=== PATIENT | male | born 1970 | race Caucasian/White ===

== ENCOUNTER 2017-04-17 21:35 | Emergency (ER) | payer OTHER ==
[~2017-04-17] VITALS: Ht 187.9 cm; Wt 124.7 kg
[~2017-04-17 21:35] MED LIST: ALBUTEROL0.09 MG/A2 INH; ANTIVERT25 MG PO; ATIVAN2 MG PO; BUSPAR10 MG PO; CARAFATE1 G1 PO; CILOXAN 5 ML5 M1 OT; CIPROFLOXACIN500 MG PO; COGENTIN0.5 MG PO; COZAAR50 MG; CYCLOBENZAPRINE10 MG PO; DAYPRO600 M1 PO; EC NAPROSYN500 MG PO; FLAGYL500 MG PO; FLOVENT DI100 MCG/Ac PO; GEODON40 MG PO; HALDOL5 MG PO; HYDROCODONE BIT1 T11 PO; HYDROCODONE BIT1 T52 JT; LAMICTAL150 MG PO; LEVOFLOXACIN500 MG PO; LISINOPRIL5 MG PO; LOSARTAN POTASS50 M1 PO; NAPROSYN500 MG PO; PREDNICOT10 MG PO; PROVENTIL0.09 MG/A1 INH; ROBAXIN750 MG PO; SPIRIVA18 MCG PO; TESSALON PERLE100 M1 PO; VICODIN 500 MG-1 TAB PO; ZANTAC 150150 MG PO; ZITHROMAX Z PA250 MG PO; ZOCOR40 MG PO; ZOFRAN4 MG PO; Zofran4 MG PO; [UNRECOGNIZED DRUG - CODE] PO
[2017-04-17] MEDS ORDERED: NAPROSYN500 MG PO (23:13)
[2017-04-17] MEDS ORDERED: CYCLOBENZAPRINE10 MG PO (23:13)
== END 2017-04-17 23:34 | disposition home or self-care (01) ==
LOC: ED 21:35
DX: M54.40 Lumbago with sciatica, unspecified side (principal); F17.200 Nicotine dependence, unspecified, uncomplicated; Z88.1 Allergy status to other antibiotic agents; Z79.899 Other long term (current) drug therapy

== ENCOUNTER 2017-07-03 19:37 | Emergency (ER) | payer OTHER ==
[~2017-07-03] VITALS: Ht 185.4 cm; Wt 99.8 kg
[2017-07-03] MEDS ORDERED: LEVETIRACETAM500 MG PO (19:45)
[2017-07-03] MEDS ORDERED: AMLODIPINE BESYL5 MG PO (19:46)
[2017-07-03 20:35] LABS: ALBUMIN 3.5 gm/dl (3.1-4.5); ALKALINE PHOSPHATASE 97 U/L (45-117); BILIRUBIN, TOTAL 0.4 mg/dl (0.2-1.0); BUN 32 mg/dl (7-24); CARBON DIOXIDE 18 mmol/L (21-32); CHLORIDE 104 mmol/L (98-107); EST GLOM FILT AFRICAN AMERICAN 51 ml/min; GLUCOSE 92 mg/dL (65-99); POTASSIUM 4.3 mmol/L (3.5-5.1); SGOT/AST 53 IU/L (3-35); SGPT/ALT 34 U/L (12-78); SODIUM 139 mmol/L (136-145); TOTAL PROTEIN 8.2 gm/dL (6.4-8.2)
[2017-07-03 20:37] LABS: TROPONIN I < 0.015 ng/ml (<0.045)
[2017-07-03 21:10] LABS: ABG CO2 CONTENT 18.4 mmol/L (23-27); ABG HCO3 17.4 mmol/l (22-26); ARTERIAL BLOOD GAS PH 7.33 (7.35-7.45); ARTERIAL BLOOD GAS PO2 70.4 mmHg (80-90)
[2017-07-03 21:12] LABS: ABG BASE EXCESS -7.2 mmol/L (-2.0-2.0)
[2017-07-03 21:16] LABS: HEMATOCRIT 38.9 % (42.0-52.0); HEMOGLOBIN 13.2 g/dl (14.0-18.0); MEAN CELL VOLUME 92.4 fl (80.0-94.0); MEAN CORPUSCULAR HGB 31.4 pg (27.0-31.0); MEAN CORPUSCULAR HGB CONC 33.9 g/dl (33.0-37.0); MEAN PLATELET VOLUME 10.3 fl (9.6-12.3); PLATELET COUNT AUTOMATED 665 10*3/uL (130-400); RED BLOOD COUNT 4.21 10*6/uL (4.50-5.90); RED CELL DISTRI WIDTH 12.4 % (0-14.5); WHITE BLOOD COUNT 24.4 10*3/uL (4.8-10.8)
[2017-07-03 21:19] LABS: LYMPHOCYTE # 3.4 10*3/uL (1.3-4.4); MONOCYTE # 1.2 10*3/uL (0.1-1.0); NEUTROPHIL # 19.8 10*3/uL (2.3-7.9); NEUTROPHILS 81 % (47-73); PLATELET SUFFICIENCY HIGH (NORMAL); TOTAL CELLS COUNTED 100 #CELLS
[2017-07-03 21:20] LABS: POLYCHROMASIA SLIGHT
[2017-07-03 21:54] LABS: BILIRUBIN 1+ (NEGATIVE); BLOOD 2+ (NEGATIVE); CLARITY CLEAR (CLEAR); COLOR YELLOW (YELLOW); GLUCOSE NEGATIVE (NEGATIVE); KETONE 3+ (NEGATIVE); LEUKO ESTERASE NEGATIVE (NEGATIVE); NITRITE NEGATIVE (NEGATIVE); PH 5.5 (5.0-9.0); PROTEIN 1+ (NEGATIVE); SPECIFIC GRAVITY 1.025 (1.005-1.030); UROBILINOGEN 0.2 E.U./dl (0.2-1.0)
[2017-07-03 22:00] LABS: HYALINE CAST 16-20; URINE REFLEX COMMENT YES (NO)
[2017-07-03 22:01] LABS: BACTERIA TRACE; EPITHELIAL CELLS 0-2; WBC 0-2 wbc/hpf (0-5)
[2017-07-03 22:15] LABS: LA>2 REFLEX 2 HR DRAW NOW
[2017-07-03 22:16] LABS: URINE AMPHETAMINES < 1000 (1000ng/ml); URINE BARBITURATES < 200 (200ng/ml); URINE COCAINE < 300 (300ng/ml)
== END 2017-07-04 00:20 | disposition short-term general hospital (02) ==
LOC: ED 19:37
PROVIDERS: Emergency Medicine Emergency Medical Services
DX: J18.9 Pneumonia, unspecified organism (principal); R41.82 Altered mental status, unspecified; F41.9 Anxiety disorder, unspecified; J44.9 Chronic obstructive pulmonary disease, unspecified; F17.200 Nicotine dependence, unspecified, uncomplicated; Z88.1 Allergy status to other antibiotic agents; Z79.899 Other long term (current) drug therapy

== ENCOUNTER 2017-09-18 13:06 | Emergency (ER) | payer OTHER ==
[~2017-09-18] VITALS: Wt 104.3 kg
[~2017-09-18 13:06] MED LIST changes: +AMLODIPINE BESYL5 MG PO; +LEVETIRACETAM500 MG PO
[2017-09-18] MEDS ORDERED: CYCLOBENZAPRINE10 MG PO (15:10)
[2017-09-18] MEDS ORDERED: NAPROSYN500 MG PO (15:10)
[2017-09-18] MEDS ORDERED: MEDROL DOSEPAK4 MG PO (15:10)
== END 2017-09-18 15:13 | disposition home or self-care (01) ==
LOC: ED 13:06
DX: G89.29 Other chronic pain (principal); M54.41 Lumbago with sciatica, right side; F17.200 Nicotine dependence, unspecified, uncomplicated; Z79.899 Other long term (current) drug therapy; Z98.890 Other specified postprocedural states

== ENCOUNTER 2017-11-08 03:46 | Emergency (ER) | payer OTHER ==
[~2017-11-08] VITALS: Ht 187.9 cm; Wt 113.4 kg
[~2017-11-08 03:46] MED LIST changes: +MEDROL DOSEPAK4 MG PO
[2017-11-08] MEDS ORDERED: PREDNISONE10 M1 PO (05:02)
[2017-11-08] MEDS ORDERED: PROVENT1 EACH INH (05:02)
[2017-11-08] MEDS ORDERED: GUAIFENESIN600 MG PO (05:02)
[2017-11-08] MEDS ORDERED: CYCLOBENZAPRINE10 MG PO (05:08)
== END 2017-11-08 05:26 | disposition home or self-care (01) ==
LOC: ED 03:46
DX: M54.41 Lumbago with sciatica, right side (principal); J20.9 Acute bronchitis, unspecified; J06.9 Acute upper respiratory infection, unspecified; J44.9 Chronic obstructive pulmonary disease, unspecified; F41.9 Anxiety disorder, unspecified; J44.1 Chronic obstructive pulmonary disease with (acute) exacerbation; Z79.899 Other long term (current) drug therapy

== ENCOUNTER 2019-01-13 12:29 | Emergency (ER) | payer OTHER ==
[~2019-01-13] VITALS: Ht 187.9 cm; Wt 125.6 kg
[~2019-01-13 12:29] MED LIST changes: +GUAIFENESIN600 MG PO; +PREDNISONE10 M1 PO; +PROVENT1 EACH INH
[2019-01-13] MEDS ORDERED: ZITHROMAX250 MG PO (14:22)
[2019-01-13] MEDS ORDERED: CYCLOBENZAPRINE10 MG PO (14:22)
[2019-03-30] MEDS ORDERED: PREDNISONE20 M1 PO (13:33)
[2019-03-30] MEDS ORDERED: ROBAXIN500 M1 PO (13:33)
== END 2019-01-13 14:32 | disposition home or self-care (01) ==
LOC: ED 12:29
DX: S30.0XXA Contusion of lower back and pelvis, initial encounter (principal); J40 Bronchitis, not specified as acute or chronic; J44.9 Chronic obstructive pulmonary disease, unspecified; Z79.899 Other long term (current) drug therapy; W19.XXXA Unspecified fall, initial encounter; Y93.89 Activity, other specified; Y92.098 Other place in other non-institutional residence as the place of occurrence of the external cause; Y99.8 Other external cause status

== ENCOUNTER 2020-04-12 16:09 | Inpatient (IN) | payer OTHER ==
[~2020-04-12] VITALS: Ht 187.9 cm; Wt 148.9 kg
[2020-04-12] VITALS (7 sets, daily range): BP systolic 142–179; BP diastolic 94–109
[~2020-04-12 16:09] MED LIST changes: +PREDNISONE20 M1 PO; +ROBAXIN500 M1 PO; +ZITHROMAX250 MG PO
--- NOTE | 2020-04-12 17:25 | NUR ---
in to see pt.
--- NOTE | 2020-04-12 17:35 | NUR ---
aware of pt taking asprin and recenty hurting leg.Orders for cta at this time.Dorsal pedal pulse good on right leg and pt able to move it.
[2020-04-12 17:41] LABS: BASO # 0.1 10*3/uL (0.0-0.1); BASO % 0.6 % (0.0-1.0); EOS # 0.5 10*3/uL (0.0-0.4); EOS % 6.3 % (1.0-4.0); HEMATOCRIT 39.8 % (42.0-52.0); LYMPH # 1.7 10*3/uL (1.3-4.4); LYMPH % 20.2 % (27.0-41.0); MEAN CELL VOLUME 92.8 fl (80.0-94.0); MEAN CORPUSCULAR HGB 31.7 pg (27.0-31.0); MEAN CORPUSCULAR HGB CONC 34.2 g/dl (33.0-37.0); MEAN PLATELET VOLUME 9.7 fl (9.6-12.3); MONO # 0.8 10*3/uL (0.1-1.0); NEUT # 5.3 10*3/uL (2.3-7.9); NEUT % 62.6 % (47.0-73.0); PLATELET COUNT AUTOMATED 285 10*3/uL (130-400); RED BLOOD COUNT 4.29 10*6/uL (4.50-5.90); RED CELL DISTRI WIDTH 13.1 % (0-14.5); WHITE BLOOD COUNT 8.4 10*3/uL (4.8-10.8)
[2020-04-12 17:54] LABS: ACT PARTIAL THROMBO TIME 23.1 SECONDS (20.0-32.1); INTERNATIONAL NORM RATIO 0.9 (2.0-3.5)
--- NOTE | 2020-04-12 17:55 | NUR ---
Pt states pain is much better after morphine.
[2020-04-12 17:58] LABS: ALBUMIN 3.3 gm/dl (3.1-4.5); ALKALINE PHOSPHATASE 133 U/L (45-117); BUN 11 mg/dl (7-24); CHLORIDE 105 mmol/L (98-107); CREATININE 1.02 mg/dL (0.70-1.30); LIPASE 143 U/L (73-393); POTASSIUM 3.9 mmol/L (3.5-5.1); SGOT/AST 72 IU/L (3-35); SGPT/ALT 98 U/L (12-78); SODIUM 136 mmol/L (136-145); TOTAL PROTEIN 7.8 gm/dL (6.4-8.2)
[2020-04-12 18:00] LABS: TROPONIN I < 0.015 ng/ml (<0.045)
[2020-04-12 18:27] LABS: CLARITY SL CLOUDY (CLEAR); COLOR YELLOW (YELLOW)
[2020-04-12 18:28] LABS: BILIRUBIN NEGATIVE (NEGATIVE); BLOOD TRACE-INTACT (NEGATIVE); GLUCOSE 1+ (NEGATIVE); KETONE NEGATIVE (NEGATIVE); LEUKO ESTERASE NEGATIVE (NEGATIVE); NITRITE NEGATIVE (NEGATIVE); SPECIFIC GRAVITY 1.025 (1.005-1.030); UROBILINOGEN 0.2 E.U./dl (0.2-1.0)
--- NOTE | 2020-04-12 19:10 | NUR ---
Pt to ct scan
--- NOTE | 2020-04-12 19:11 | NUR ---
Transfer of care to Fatemeh nieves
--- NOTE | 2020-04-12 20:30 | NUR ---
PATIENT AT DESK AT THIS TIME ASKING TO SIGN OUT AMA, STATES HE DOESNT WANT TO WAIT ON CT SCAN RESULTS AT THIS TIME. PATIENT ALREADY PULLED OUT IV AND TOOK OFF HEART MONITOR AT THIS TIME AND IS DRESSED. DR PARRY AT BEDSIDE SPEAKING WITH HIM AT THIS TIME.
--- NOTE | 2020-04-12 20:45 | NUR ---
I WAS HAVING PATIENT SIGN AMA PAPERS AND DR PARRY GOT A CALL FROM OPPRTUNITY FOR CT SCAN RESULTS. PATIENT STATES HE WILL WAIT ON DOC TO COME BACK WITH RESULTS.
--- NOTE | 2020-04-12 21:10 | NUR ---
PATIENT HAS AGREED TO STAY HERE AT THE HOSPITAL AFTER GETTING CT SCAN RESULTS. PATIENT IN NO ACUTE DISTRESS AT THIS TIME. AOX3. RN WILL CONT TO MONITOR.
--- NOTE | 2020-04-12 21:48 | NUR ---
PATIENT PLACED ON 2LITERS NC AT THIS TIME FOR COMFORT. PATIENT PLACED ON MONITOR AT THIS TIME NSR IN THE 90'S. AOX3. RESP LABORED AND INCREASED AT THIS 28 BREATHS PER MINUTE.
--- NOTE | 2020-04-12 22:35 | NUR ---
WHILE GOING THROUGH PATIENT'S CHART, RN NOTICED MULTIPLE S/S CONSISTENT WITH COVID 19. RN HAS NOT RECEIVED NURSE TO NURSE REPORT YET, BUT CALLED TO QUESTION WHETHER PT SHOULD BE TESTED PRIOR TO COMING TO FLOOR. NOT NECESSARY PER . STATES PT HAD RECENT PROCEDURE AND RESPIRATORY STATUS RELATED TO PAIN ASSOCIATED WITH HEMATOMA/PE.
--- NOTE | 2020-04-12 23:28 | NUR ---
A 49, admitted to , under the services of GE Casas DO with a diagnosis of PULMONARY EMBOLISM. Chief complaint is ABDOMINAL (RUQ) PAIN, SOB. Patient arrived via wheel chair from ER. Monitor applied. Initial assessment completed. Vital signs taken and recorded. GE CASAS DO notified of admission to the unit. Orders received. See assessment for past medical history, medications and allergies. Patient and/or family oriented to unit. [facility] visitation policy reviewed. Clothing/patient valuable form completed. PAULINO CATHERINE
--- NOTE | 2020-04-12 23:48 | NUR ---
PT MEDICATED WITH PO NORCO PER PRN ORDER FOR C/O R SIDE PAIN RATED 9/10. STATES EARLIER MORPHINE WEARING OFF. WILL MONITOR EFFECTIVENESS. PT INSISTING ON GETTING UP TO USE RESTROOM. RN OFFERED URINAL AT BEDSIDE, BUT PT STATES HE WANTS TO GET UP TO USE BATHROOM IN BATHROOM. RN ASSISTED PT TO BATHROOM. URINAL USED TO URINATE. DARK ALONDRA/TEA COLORED URINE NOTED. PT VERY SOB. RN ENCOURAGED PT TO RETURN TO BED AND FOCUS ON BREATHING. WILL MONITOR.
[2020-04-12] MEDS ORDERED: ATORVASTATIN CA10 M1 PO (23:58)
[2020-04-12] MEDS ORDERED: IBU800 M1 PO (23:59)
[2020-04-12] MEDS ORDERED: GABAPENTIN600 MG PO (23:59)
[2020-04-13] MEDS ORDERED: 'XANAX1 MG PO
[2020-04-13] MEDS ORDERED: PROAIR HFA8.5 GM INH (00:01)
[2020-04-13] MEDS ORDERED: QUETIAPINE FUM300 M1 PO (00:01)
[2020-04-13] MEDS ORDERED: CYCLOBENZAPRINE10 MG PO (00:02)
[2020-04-13] MEDS ORDERED: FUROSEMIDE20 M1 PO (00:03)
[2020-04-13] MEDS ORDERED: SERTRALINE HYD100 MG PO (00:04)
[2020-04-13] MEDS ORDERED: ATENOLOL25 MG PO (00:05)
[2020-04-13] MEDS ORDERED: LISINOPRIL20 MG PO (00:05)
[2020-04-13 00:20] VITALS: BP 168/74
--- NOTE | 2020-04-13 00:22 | NUR ---
NOTIFIED OF PATIENT'S BP 168/74 MANUALLY. DISCUSSED PATIENT'S C/O PAIN IN R SIDE RATED 9/10 DESPITE MORPHINE GIVEN AT 2244 IN ER AND PO NORCO GIVEN AT 2348 ONCE ON FLOOR. ALSO MADE AWARE MED REC UP TO DATE PER PT RECALL. PT REQUESTING HOME SEROQUEL. NEW ORDERS TO FOLLOW.
--- NOTE | 2020-04-13 00:52 | NUR ---
IV DILAUDID ADMINISTERED PER ONE TIME ORDER FOR C/O PAIN IN CHEST/R SIDE RATED 8/10. WILL MONITOR EFFECTIVENESS. CALL LIGHT IN REACH.
--- NOTE | 2020-04-13 01:40 | NUR ---
EARLIER DILAUDID EFFECTIVE. NOW RATING PAIN 5/10. WILL MONITOR. CALL LIGHT IN REACH. AWARE SHIFT DIRECTOR ATTEMPTING TO LOCATE SEROQUEL IT IS NOT IN 4E PYXIS. VERBALIZES UNDERSTANDING. NO OTHER NEEDS VOICED AT THIS TIME.
--- NOTE | 2020-04-13 02:23 | NUR ---
PO SEROQUEL GIVEN PER ORDER. WILL MONITOR.
--- NOTE | 2020-04-13 02:24 | NUR ---
NIKA VAZQUEZ [id number] Please refer to the physician's history and physical for past medical history, comorbid conditions, and allergies. Diagnosis: PULMONARY EMBOLI Amrit Score: 18,AT RISK WOUND DESCRIPTIONS: Patient states the ecchymotic area just appeared this morning. It is dark red and purple in color and is located on the right side. It measures 28cm x 46cm x <0.1cm. Patient is having discomfort at time of assessment. Patient nurse Deborah states she will medicate when able to. Surface the patient is resting on: [employer] SKIN PREVENTION RECOMMENDATION: 1. Pressure redistribution support surface as appropriate 2. Elevate heels 3. Remove boots/TEDS every shift and reapply 4. Head of bed 30 degrees as tolerated 5. Assess nutrition and hydration 6. Manage moisture 7. Avoid the use of containment devices while in bed 8. Use absorptive products on surfaces limit layers of linens on bed 9. Turn and reposition every 1-2 hours in bed and every 1 hour in chair as tolerated 10. Weight shifts every 15 minutes while up in chair 11. Offloading with pillows or device to keep heels elevated off bed 12. Monitor skin at least every shift 13. Inspect under medical devices twice a day
--- NOTE | 2020-04-13 02:46 | NUR ---
PT MEDICATED WITH IV MORPHINE PER PRN ORDER FOR C/O R SIDE/CHEST PAIN RATED 8/10. WILL MONITOR EFFECTIVENESS. CALL LIGHT IN REACH. BED ALARM INTACT.
--- NOTE | 2020-04-13 03:13 | NUR ---
PO XANAX ADMINISTERED PER PRN ORDER FOR INCREASED ANXIETY/AGITATION. PATIENT HAD COUGHING SPELL. PT C/O PAIN IN R SIDE WITH COUGHING. PT RATING PAIN 8/10. STATES MORPHINE HELPED SOME, BUT IS STILL IN PAIN WHEN COUGHING. WILL ADMINISTER NORCO WHEN DUE. WILL MONITOR EFFECTIVENESS OF XANAX. CALL LIGHT IN REACH.
[2020-04-13 03:15] VITALS: BP 155/88
--- NOTE | 2020-04-13 04:03 | NUR ---
PT FINALLY ASLEEP IN BED. RESPIRATIONS EASY. NO S/S OF DISTRESS NOTED. WILL MONITOR. CALL LIGHT IN REACH. BED ALARM INTACT.
[2020-04-13 06:40] LABS: BASO % 0.5 % (0.0-1.0); EOS # 0.5 10*3/uL (0.0-0.4); HEMATOCRIT 37.8 % (42.0-52.0); LYMPH # 1.8 10*3/uL (1.3-4.4); LYMPH % 22.5 % (27.0-41.0); MEAN CELL VOLUME 95.5 fl (80.0-94.0); MEAN CORPUSCULAR HGB 31.3 pg (27.0-31.0); MEAN CORPUSCULAR HGB CONC 32.8 g/dl (33.0-37.0); MONO # 0.7 10*3/uL (0.1-1.0); MONO % 8.7 % (3.0-9.0); NEUT # 4.9 10*3/uL (2.3-7.9); NEUT % 61.3 % (47.0-73.0); PLATELET COUNT AUTOMATED 246 10*3/uL (130-400); RED BLOOD COUNT 3.96 10*6/uL (4.50-5.90); RED CELL DISTRI WIDTH 13.2 % (0-14.5)
[2020-04-13 06:46] LABS: ALBUMIN 2.9 gm/dl (3.1-4.5); BUN 11 mg/dl (7-24); CHLORIDE 105 mmol/L (98-107); CHOLESTEROL 203 mg/dL (<200); CREATININE 1.01 mg/dL (0.70-1.30); POTASSIUM 3.6 mmol/L (3.5-5.1); SGOT/AST 69 IU/L (3-35); SGPT/ALT 91 U/L (12-78); SODIUM 137 mmol/L (136-145); TOTAL PROTEIN 6.9 gm/dL (6.4-8.2); TRIGLYCERIDES 204 mg/dl (<150); VLDL CHOLESTEROL 41 mg/dL (6-40)
[2020-04-13 06:47] LABS: ALKALINE PHOSPHATASE 115 U/L (45-117); HDL CHOLESTEROL 45 mg/dl (40-60); LDL CHOLESTEROL 117 mg/dL (9-159)
--- NOTE | 2020-04-13 06:48 | NUR ---
PT ASLEEP IN BED, EASILY AROUSABLE. PATIENT REMAINS DROWSY FROM EARLIER XANAX AND SEROQUEL, BUT IS ALERT AND ORIENTED X3. PT WOKE UP SWEATING. TEMPERATURE IN ROOM TURNED DOWN PER PT REQUEST. RN CHECKED TEMP-97.8. PT STATES HE ALWAYS SWEATS THROUGHOUT THE NIGHT. NEW GOWN, TOWELS & WASHCLOTHS PROVIDED. PT STATES HE WANTS TO CONTINUE SLEEPING AND WILL WAKE UP TO GET CLEANED UP LATER ON. PT WAS AWAKE FOR MOST OF THE NIGHT & FINALLY CALM ENOUGH TO SLEEP. O2 REMAINS IN USE VIA 2L NC. BSG 172. PT REFUSING COVERAGE AT THIS TIME. STATES HE IS NOT A DIABETIC & WANTS TO SLEEP. WILL MONITOR. CALL LIGHT IN REACH. BED ALARM INTACT.
--- NOTE | 2020-04-13 07:55 | NUR ---
NORCO GIVEN FOR C/O RT SIDE PAIN. RATES 8/10 ON PAIN SCALE. WILL [id number].
[2020-04-13 08:00] VITALS: BP 146/90
[2020-04-13 08:07] LABS: VITAMIN D, 25-HYDROXY 26.1 ng/mL (30-100)
--- NOTE | 2020-04-13 08:30 | NUR ---
0800 AM ASSESSMENT COMPLETE. BED IN LOW LOCKED POSITION. PT VERY ANXIOUS AND SOB. RESP 22, 2L NC IN PLACE AT THIS. PT C/O RT FLANK RATED 10/10. WAS MEDICATED AT 0755 WITH PO NORCO. WILL AWAIT EFFECTIVENESS. CALL LIGHT WITHIN REACH. WILL CONTINUE TO MONITOR.
--- NOTE | 2020-04-13 09:00 | NUR ---
NORCO HELPING A BIT PER PT, NOT FULLY EFFECTIVE. WILL MONITOR.
--- NOTE | 2020-04-13 09:00 | NUR ---
Locksmith Apprentice in to talk to patient. Patient states lives at home with dad and family. There are no steps in the home. Physician: jem epstein [facility]acy: [facility] Home health services: none Patient's level of ADLs: INDEPENDENT Patient has working utilities: all working DME: none Follow-up physician's appointment after d/c: will be made by hospitalist nurse director upon discharge Does patient want to access PORTAL?: no Discharge plan discussed with patient, he states he lives at home with his dad and family, he is independent in adls and ambulation, doesn't drive due to having seizures. no home oxygen, he states he will return home when medically stable, discussed with him being on xeralto and that his insurance will pay for it or he can fill the prescription in the hospital pharmacy for $4. patient denies any home needs at this time, case management will follow. LOVE LARA
--- NOTE | 2020-04-13 10:00 | NUR ---
MORPHINE GIVEN FOR C/O RT SIDE PAIN. RATES 10/10 ON PAIN SCALE. WILL MONITOR.
--- NOTE | 2020-04-13 11:00 | NUR ---
MORPHINE APPEARS EFFECTIVE. PT RESTING IN BED WITH EYES CLOSED.
[2020-04-13 12:00] VITALS: BP 132/90; BP 136/77
--- NOTE | 2020-04-13 12:36 | NUR ---
NORCO GIVEN FOR C/O RT SIDE PAIN. RATES 10/10 ON PAIN SCALE. WILL MONITOR.
--- NOTE | 2020-04-13 13:45 | NUR ---
ANGEL HELPING, NOT FULLY EFFECTIVE PER PT.
--- NOTE | 2020-04-13 14:46 | NUR ---
DR. WREN NOTIFIED OF CONSULT.
--- NOTE | 2020-04-13 15:40 | NUR ---
MORPHINE GIVEN FOR C/O RT FLANK PAIN. RATES 10/10 ON PAIN SCALE.
[2020-04-13 16:00] VITALS: BP 142/96
--- NOTE | 2020-04-13 16:45 | NUR ---
MORPHINE HELPING PER PT. NOT FULLY EFFECTIVE.
--- NOTE | 2020-04-13 17:24 | NUR ---
NORCO GIVEN FOR C/O RT FLANK PAIN. RATES 8/10 ON PAIN SCALE. WILL MONITOR.
--- NOTE | 2020-04-13 18:52 | NUR ---
XANAX GIVEN FOR C/O ANXIETY. WILL MONITOR.
--- NOTE | 2020-04-13 19:16 | NUR ---
PATIENT AWAKE IN BED TALKING ON PHONE. PT STATES EARLIER XANAX HELPED CALM ANXIETY SOME. HOWEVER, C/O PAIN. WILL REVIEW EMAR AND ADMINISTER PRN PAIN MEDICATION WHEN DUE.
--- NOTE | 2020-04-13 19:33 | NUR ---
IV MORPHINE ADMINISTERED PER PRN ORDER FOR C/O PAIN IN R SIDE RIBS RATED 8/10. WILL MONITOR EFFECTIVENESS. CALL LIGHT IN REACH.
[2020-04-13 20:00] VITALS: BP 154/96
--- NOTE | 2020-04-13 20:32 | NUR ---
EARLIER MEDICATION APPEARS EFFECTIVE. PT ASLEEP IN BED. RESPIRATIONS EASY. NO S/S OF DISTRESS NOTED. WILL MONITOR. CALL LIGHT IN REACH.
--- NOTE | 2020-04-13 21:58 | NUR ---
PT REQUESTED AND RECEIVED PO NORCO FOR C/O PAIN IN R RIB/SIDE RATED 8/10. PO DULCOLAX ALSO ADMINISTERED PER PRN ORDER FOR C/O CONSTIPATION. SCHEDULED SEROQUEL ALSO ADMINISTERED PER ORDER. WILL MONITOR. CALL LIGHT IN REACH.
--- NOTE | 2020-04-13 22:50 | NUR ---
EARLIER MEDICATION APPEARS EFFECTIVE. PT ASLEEP IN BED. RESPIRATIONS EASY. NO S/S OF DISTRESS NOTED. WILL MONITOR. CALL LIGHT IN REACH.
[2020-04-14] VITALS: BP 158/86
--- NOTE | 2020-04-14 04:06 | NUR ---
PT ASLEEP IN BED. RESPIRATIONS EASY. NO S/S OF DISTRESS NOTED. WILL MONITOR. CALL LIGHT IN REACH.
--- NOTE | 2020-04-14 04:08 | NUR ---
PT ASLEEP IN BED. RESPIRATIONS EASY. NO S/S OF DISTRESS NOTED. WILL MONITOR. CALL LIGHT IN REACH.
--- NOTE | 2020-04-14 05:35 | NUR ---
PO NORCO ADMINISTERED FOR C/O PAIN IN R SIDE/RIBS RATED 9/10. WILL MONITOR EFFECTIVENSS. CALL LIGHT IN REACH.
[2020-04-14 06:21] LABS: BASO % 0.3 % (0.0-1.0); EOS % 0.2 % (1.0-4.0); HEMATOCRIT 39.6 % (42.0-52.0); LYMPH # 1.3 10*3/uL (1.3-4.4); LYMPH % 11.7 % (27.0-41.0); MEAN CELL VOLUME 94.1 fl (80.0-94.0); MEAN CORPUSCULAR HGB 31.6 pg (27.0-31.0); MEAN CORPUSCULAR HGB CONC 33.6 g/dl (33.0-37.0); MONO # 0.5 10*3/uL (0.1-1.0); MONO % 4.5 % (3.0-9.0); NEUT # 9.4 10*3/uL (2.3-7.9); NEUT % 82.2 % (47.0-73.0); PLATELET COUNT AUTOMATED 315 10*3/uL (130-400); RED BLOOD COUNT 4.21 10*6/uL (4.50-5.90); RED CELL DISTRI WIDTH 12.9 % (0-14.5); WHITE BLOOD COUNT 11.4 10*3/uL (4.8-10.8)
--- NOTE | 2020-04-14 06:33 | NUR ---
EARLIER NORCO HELPED SOME PER PT, BUT PT STILL C/O PAIN 07/05. IV MORPHINE ADMINISTERED AT THIS TIME PER PRN ORDER. WILL MONITOR EFFECTIVENESS. CALL LIGHT IN REACH.
[2020-04-14 06:44] LABS: BUN 16 mg/dl (7-24); CHLORIDE 106 mmol/L (98-107); CREATININE 1.03 mg/dL (0.70-1.30); POTASSIUM 4.3 mmol/L (3.5-5.1); SODIUM 138 mmol/L (136-145)
--- NOTE | 2020-04-14 07:24 | NUR ---
EARLIER MORPHINE APPEARS EFFECTIVE. PT ASLEEP IN BED. NO S/S OF DISTRESS NOTED. WILL MONITOR. CALL LIGHT IN REACH.
[2020-04-14 08:00] VITALS: BP 126/96
--- NOTE | 2020-04-14 08:08 | NUR ---
PT REQUESTED AND RECEIVED PO XANAX PER PRN ORDER FOR C/O ANXIETY. WILL MONITOR EFFECTIVENESS. CALL LIGHT WITHIN REACH.
--- NOTE | 2020-04-14 09:00 | NUR ---
case management visits with patient, he states he will return home when medically stable and denies any home needs, case management will follow
--- NOTE | 2020-04-14 09:08 | NUR ---
XANAX EFFECTIVE AT THIS TIME. PT SLEEPING IN BED. WILL CONTINUE TO MONITOR.
[2020-04-14 09:22] LABS: ABG BASE EXCESS 1.9 mmol/L (-2.0-2.0); ARTERIAL BLOOD GAS PH 7.378 (7.35-7.45)
--- NOTE | 2020-04-14 09:39 | NUR ---
CALLED REGARDING ABG RESULTS. 02 AT 2LNC PER . WILL CONTINUE TO MONITOR.
--- NOTE | 2020-04-14 09:44 | NUR ---
02 APPLIED AT THIS TIME VIA 2LNC. WILL CONTINUE TO MONITOR. PT SLEEPING COMFORTABLY IN BED. CALL LIGHT WITHIN REACH.
--- NOTE | 2020-04-14 11:21 | NUR ---
PT C/O INCREASED ANXIETY AT THIS TIME. PT STATES HE FEELS LIKE HE IS GOING TO HAVE A PANIC ATTACK. PT REQUESTING TO SEE HIS PHYSICIAN. NOTIFIED AT THIS TIME. 02 IN USE VIA [employer]. NEW ORDERS TO BE ENTERED PER PHYSICIAN.
--- NOTE | 2020-04-14 11:38 | NUR ---
IV ATIVAN GIVEN SLOWLY PER PRN ORDER FOR C/O INCREASED ANXIETY. WILL MONITOR EFFECTIVENESS. CALL LIGHT WITHIN REACH. 02 IN USE VIA 2LNC.
--- NOTE | 2020-04-14 11:48 | NUR ---
IN TO SEE PATIENT AT THIS TIME.
[2020-04-14 12:00] VITALS: BP 109/94
--- NOTE | 2020-04-14 12:38 | NUR ---
IV ATIVAN EFFECTIVE AT THIS TIME. PT STATES LESS ANXIETY RIGHT NOW. WILL CONTINUE TO MONITOR.
--- NOTE | 2020-04-14 13:25 | NUR ---
PT MEDICATED WITH PO NORCO PER PRN ORDER FOR C/O RIGHT FLANK PAIN. RATES PAIN 08/05. WILL MONITOR EFFECTIVENESS. CALL LIGHT WITHIN REACH.
--- NOTE | 2020-04-14 13:39 | NUR ---
ECHO BEING PERFORMED AT THE BEDSIDE.
--- NOTE | 2020-04-14 14:25 | NUR ---
NORCO EFFECTIVE PER PT. WILL CONTINUE TO MONITOR.
--- NOTE | 2020-04-14 14:30 | NUR ---
ABG'S SENT PER ORDER.
[2020-04-14 14:35] LABS: ABG BASE EXCESS 0.6 mmol/L (-2.0-2.0); ARTERIAL BLOOD GAS PH 7.389 (7.35-7.45)
--- NOTE | 2020-04-14 14:47 | NUR ---
NOTIFIED REGARDING MOST RECENT ABG RESULTS.
--- NOTE | 2020-04-14 15:32 | NUR ---
PATIENT TAKEN OFF FLOOR FOR SCHEDULED U/S.
--- NOTE | 2020-04-14 15:54 | NUR ---
PT REQUESTED IV MORPHINE PER PRN ORDER FOR C/O RIGHT FLANK PAIN. RATES PAIN 9/10. WILL MONITOR EFFECTIVENESS.
[2020-04-14 16:00] VITALS: BP 150/96
--- NOTE | 2020-04-14 16:10 | NUR ---
[facility] CALLED AT THIS TIME REGARDING FREQUENCY OF XANAX. NOTIFIED REGARDING XANAX ORDERED FOR PATIENT AT HOME TID PRN FOR ANXIETY. NEW ORDERS TO BE ENTERED PER PHYSICIAN.
--- NOTE | 2020-04-14 16:42 | NUR ---
PT REQUESTED PO XANAX PER PRN ORDER FOR C/O ANXIETY. WILL MONITOR EFFECTIVENESS.
--- NOTE | 2020-04-14 16:54 | NUR ---
IV MORPHINE RELIEVING PAIN. WILL CONTINUE TO MONITOR.
--- NOTE | 2020-04-14 17:42 | NUR ---
XANAX HELPING PATIENT'S ANXIETY. WILL CONTINUE TO MONITOR.
--- NOTE | 2020-04-14 18:23 | NUR ---
PT MEDICATED WITH PO NORCO AT THIS TIME FOR COMPLAINTS OF 9/10 RIGHT FLANK PAIN. WILL MONITOR.
[2020-04-14 20:00] VITALS: BP 145/94
--- NOTE | 2020-04-14 20:00 | NUR ---
PATIENT AGAIN WANTING TO LEAVE AMA. RN TALKED TO PATIENT AND ENCOURAGED PATIENT TO STAY DUE TO HIS CONDITION. DISCUSSED RISKS OF LEAVING AMA. PATIENT VERY WORKED UP, BUT AGREES TO STAY. REQUESTING TO GET A SHOWER. UTILITIES AND MAINTENANCE SUPERVISOR REMOVED AND IV SITE WRAPPED. PT SET UP FOR SHOWER. REQUESTING PM MEDICATIONS EARLY SO THAT HE CAN SLEEP AND BE AWAKE FOR DOCTORS IN THE MORNING. RN AGREED TO GIVE MEDICATIONS WHEN PT RETURNS TO ROOM FROM SHOWER.
--- NOTE | 2020-04-14 20:46 | NUR ---
PT RETURNED TO ROOM. EMBOSSING PRESS OPERATOR MOLDED GOODS APPLIED. EVENING MEDS GIVEN PER REQUEST. PT ALSO REQUESTING MORPHINE FOR PAIN. WILL RETURN WHEN ABLE WITH REQUESTED PAIN MEDICATION.
--- NOTE | 2020-04-14 20:51 | NUR ---
IV MORPHINE ADMINISTERED FOR C/O PAIN IN R SIDE RATED 10/10. WILL MONITOR EFFECTIVENESS. CALL LIGHT IN REACH.
--- NOTE | 2020-04-14 21:58 | NUR ---
PATIENT MEDICATED WITH PO NORCO PER PRN ORDER FOR C/O PAIN IN R SIDE RATED 6/10. STATES EARLIER MORPHINE HELPED A LOT. WILL CONTINUE TO MONITOR. CALL LIGHT IN REACH.
--- NOTE | 2020-04-14 22:29 | NUR ---
EARLIER MEDICATIONS EFFECTIVE PER PT. WILL CONTINUE TO MONITOR. CALL LIGHT IN REACH.
--- NOTE | 2020-04-14 22:54 | NUR ---
PT ASLEEP IN BED.
[2020-04-15] VITALS: BP 145/92
--- NOTE | 2020-04-15 03:23 | NUR ---
PO NORCO ADMINISTERED FOR C/O PAIN IN R SIDE RATED 9/10. WILL MONITOR. CALL LIGHT IN REACH.
--- NOTE | 2020-04-15 03:30 | NUR ---
RN NOTED SOME SPREADING OF ECCHYMOTIC AREA TO R SIDE/FLANK/ABDOMEN OUTSIDE OF MARKED AREA. RN TOOK NEW PHOTOS OF AREA. PT DENIES ANY NEW/WORSENING PAIN.
--- NOTE | 2020-04-15 03:50 | NUR ---
NOTIFIED OF ECCHYMOTIC AREA/HEMATOMA SPREADING OUTSIDE OF MARKED AREA. DISCUSSED 'S PROGRESS NOTE WANTING PATIENT TO BE PUT ON SQ HEPARIN INSTEAD OF XARELTO SO THAT IF BLEEDING OCCURRING, REVERSAL WOULD BE EASIER. STATES HE WILL PASS ON TO DAY TEAM.
--- NOTE | 2020-04-15 03:50 | NUR ---
NOTIFIED OF HEMATOMA SPREADING OUTSIDE OF MARKED AREA. DISCUSSED 'S PROGRESS NOTE WANTING PATIENT TO BE PUT ON SQ HEPARIN INSTEAD OF XARELTO SO THAT IF BLEEDING OCCURRING, REVERSAL WOULD BE EASIER. STATES HE WILL PASS ON TO DAY TEAM.
--- NOTE | 2020-04-15 04:15 | NUR ---
EARLIER NORCO APPEARS EFFECTIVE. PT ASLEEP IN BED. WILL MONITOR. CALL LIGHT IN REACH.
--- NOTE | 2020-04-15 06:34 | NUR ---
IV MORPHINE GIVEN FOR R SIDE PAIN RATED 7/10.
--- NOTE | 2020-04-15 06:53 | NUR ---
PT REQUESTING XANAX DESPITE EDUCATION ON SIDE EFFECTS. PT REPEATEDLY STATED THROUGHOUT THE NIGHT THAT HE WANTS TO BE AWAKE FOR THE DOCTORS WHEN THEY ROUND SO THAT HE CAN HAVE A BETTER CHANCE AT GOING HOME TODAY. PT AWARE THAT XANAX MAY MAKE HIM DROWSY. PT STILL WANTS TO TAKE IT. PO XANAX GIVEN FOR C/O ANXIETY. PO TESSALON PERLE ALSO ADMINISTERED PER ORDER. WILL MONITOR. CALL LIGHT IN REACH.
--- NOTE | 2020-04-15 07:53 | NUR ---
EARLIER XANAX AND MORHINE RELIEVING SOME ANXIETY AND PAIN/DISCOMFORT. WILL CONTINUE TO MONITOR. CALL LIGHT WITHIN REACH.
[2020-04-15 08:00] VITALS: BP 166/96
[2020-04-15 08:27] LABS: BASO % 0.1 % (0.0-1.0); HEMATOCRIT 37.8 % (42.0-52.0); LYMPH # 1.5 10*3/uL (1.3-4.4); MEAN CELL VOLUME 94.3 fl (80.0-94.0); MEAN CORPUSCULAR HGB 31.7 pg (27.0-31.0); MEAN CORPUSCULAR HGB CONC 33.6 g/dl (33.0-37.0); MEAN PLATELET VOLUME 9.6 fl (9.6-12.3); MONO # 0.7 10*3/uL (0.1-1.0); MONO % 4.4 % (3.0-9.0); NEUT # 12.3 10*3/uL (2.3-7.9); NEUT % 84.1 % (47.0-73.0); PLATELET COUNT AUTOMATED 308 10*3/uL (130-400); RED BLOOD COUNT 4.01 10*6/uL (4.50-5.90); WHITE BLOOD COUNT 14.6 10*3/uL (4.8-10.8)
--- NOTE | 2020-04-15 09:00 | NUR ---
case management visits with patient he states he hoping to be discharged to home today, patient denies any home needs
--- NOTE | 2020-04-15 09:30 | NUR ---
HOME O2 ASSESSMENT ROOM AIR AT REST: SPO2 95% HR 98 BP 152/98 ROOM AIR WITH AMBULATION: SPO2 91-94% ROOM AIR RECOVERY: SPO2 93% HR 114 BP 164/96 PT. DID NOT REQUIRE SUPPLEMENTAL O2 AT REST OR DURING EXERTION. NO C/O OF SHORTNESS OF BREATH. RN AND NOTIFIED.
--- NOTE | 2020-04-15 09:46 | NUR ---
NORCO GIVEN PER PRN ORDER FOR C/O RIGHT FLANK PAIN. RATES PAIN 7/10. WILL MONITOR EFFECTIVENESS.
[2020-04-15] MEDS ORDERED: MUCUS RELIEF600 MG PO (09:53)
[2020-04-15] MEDS ORDERED: PREDNISONE10 MG PO (09:53)
[2020-04-15] MEDS ORDERED: DOXYCYCLINE100 MG PO (09:53)
[2020-04-15] MEDS ORDERED: XARELTO1 EACH PO (09:53)
[2020-04-15] MEDS ORDERED: NORCO 7.5-3251 EACH PO (09:54)
[2020-04-15] MEDS ORDERED: ATENOLOL25 MG PO (09:54)
[2020-04-15] MEDS ORDERED: ATORVASTATIN CA10 M1 PO (09:54)
[2020-04-15] MEDS ORDERED: LISINOPRIL20 MG PO (09:54)
[2020-04-15] MEDS ORDERED: QUETIAPINE FUM300 M1 PO (09:54)
[2020-04-15] MEDS ORDERED: GABAPENTIN600 MG PO (09:54)
--- NOTE | 2020-04-15 10:30 | NUR ---
DIABETES EDUCATION PROVIDED FOR PATIENT. PT VOICED UNDERSTANDING.
--- NOTE | 2020-04-15 10:30 | NUR ---
DISCHARGE PHOTO NOT OBTAINED AT THIS TIME DUE TO RECENT PHOTO TAKEN DURING THE NIGHT OF 04/15/20.
--- NOTE | 2020-04-15 10:46 | NUR ---
ANGEL EFFECTIVE PER PT.
--- NOTE | 2020-04-15 10:46 | NUR ---
Discharge instructions reviewed with patient/family. Patient receptive and verbalizes understanding. Follow-up care arranged. Written instructions given to patient/family. YAMILETH POWELL.
--- NOTE | 2020-04-15 10:48 | NUR ---
PATIENT TAKEN DOWN TO ER LOBBY VIA W/C. BELONGINGS WITH PATIENT.
== END 2020-04-15 10:48 | disposition home or self-care (01) | DRG 134 ==
LOC: ED 16:09 → 4E 22:06 → EDHOLD 22:06 → 4E 22:22
PROVIDERS: Emergency Medicine; Family Medicine; Internal Medicine; Student in an Organized Health Care Education/Training Program; ADMIT Internal Medicine
DX: I26.94 Multiple subsegmental thrombotic pulmonary emboli without acute cor pulmonale (principal); J96.01 Acute respiratory failure with hypoxia; R65.10 Systemic inflammatory response syndrome (SIRS) of non-infectious origin without acute organ dysfunction; S20.211A Contusion of right front wall of thorax, initial encounter; J96.12 Chronic respiratory failure with hypercapnia; D64.9 Anemia, unspecified; E83.41 Hypermagnesemia; F41.9 Anxiety disorder, unspecified; I10 Essential (primary) hypertension; E78.5 Hyperlipidemia, unspecified; E11.65 Type 2 diabetes mellitus with hyperglycemia; E66.01 Morbid (severe) obesity due to excess calories; F17.210 Nicotine dependence, cigarettes, uncomplicated; M54.5 Low back pain; G89.29 Other chronic pain; J44.1 Chronic obstructive pulmonary disease with (acute) exacerbation; E44.0 Moderate protein-calorie malnutrition; F12.90 Cannabis use, unspecified, uncomplicated; R74.0 Nonspecific elevation of levels of transaminase and lactic acid dehydrogenase [LDH]; X58.XXXA Exposure to other specified factors, initial encounter; Y93.89 Activity, other specified; Y92.89 Other specified places as the place of occurrence of the external cause; Y99.8 Other external cause status; Z71.6 Tobacco abuse counseling; Z68.41 Body mass index [BMI] 40.0-44.9, adult; Z79.899 Other long term (current) drug therapy; Z80.9 Family history of malignant neoplasm, unspecified; Z79.51 Long term (current) use of inhaled steroids